=== PATIENT | female | born 1930 | race Caucasian/White ===

== ENCOUNTER 2016-07-10 23:02 | Emergency (ER) | payer MEDICARE, BC ==
--- NOTE | ~2016-07-10 | CT71 ---
[facility] A Service [facility][1] RADIOLOGY TEXT RESULTS PATIENT: TREMAYNE CELESTIN LOCATION: [facility] : 30 UNIT #: [id number] AGE: [address]: Parminder Rowland MD SEX: F ORDER DR: [id number] [facility] [address] [place], [place] [address] [id number] E MR#: [id number] Acc #: [id number] NAME: TREMAYNE CELESTIN. : 1930 SEX: F STUDY DATE/TIME: 07/10/2016 21:17 UNIT: [facility] ROOM: STUDY DESCRIPTION: CT Head Wo Contrast Attending Physician: Parminder Rowland M.D. Ordering Physician: Ed Bandar Da Silva M.D. Primary Care Physician: Primary Care Physician No MEDICAL IMAGING REPORT This report is preliminary unless electronic signature is present EXAM Noncontrast head CT. HISTORY Fell and hit head today, dizziness, neck pain. COMPARISON Head CT 05/01/[address] exam was performed with one or more of the following radiation dose reduction techniques: automatic exposure control, adjustment of mA and/or kV according to patient size, and iterative reconstruction. FINDINGS Axial noncontrast imaging brain demonstrates general generalized atrophy. There is decreased attenuation of the periventricular white matter most compatible chronic microvascular disease. 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 No mass or mass effect or midline shift. No hemorrhage or abnormal extraaxial fluid collections. The bony calvaria, skull base, mastoids and sinuses unremarkable. IMPRESSION No acute intracranial abnormality identified. Generalized atrophy with evidence of chronic diffuse microvascular disease. Dictated by... Joshua Siddiqui M.D. THIS IS AN ELECTRONICALLY VERIFIED REPORT Joshua Siddiqui M.D. at 07/11/2016 11:00 PM [facility] A Service [facility][1] RADIOLOGY TEXT RESULTS PATIENT: TREMAYNE CELESTIN LOCATION: [facility] : 30 UNIT #: [id number] AGE: [address]: Parminder Rowland MD SEX: F ORDER DR: Cristal TD: 07/11/2016 00:39 JOB #: [id number] MEDICAL IMAGING REPORT Page 1 of 1 COPY
--- NOTE | ~2016-07-10 | CT52 ---
[facility] A Service of [facility] RADIOLOGY TEXT RESULTS PATIENT: TREMAYNE CELESTIN LOCATION: [facility] : 30 UNIT #: [id number] AGE: [address]: Parminder Rowland MD SEX: F ORDER DR: [id number] [facility] [address] [place], [place] [address] [id number] E MR#: [id number] Acc #: [id number] NAME: TREMAYNE CELESTIN. : 1930 SEX: F STUDY DATE/TIME: 07/10/2016 21:26 UNIT: [facility] ROOM: STUDY DESCRIPTION: CT Cervical Spine Wo Cont Attending Physician: Parminder Rowland M.D. Ordering Physician: Ed Doctor [id number] [facility] Primary Care Physician: No Primary Care Physician MEDICAL IMAGING REPORT This report is preliminary unless electronic signature is present EXAM CT cervical spine without contrast HISTORY Fell and hit head today, dizziness, neck pain. COMPARISON CT cervical spine 05/01/[address] exam was performed with one or more of the following radiation dose reduction techniques: automatic exposure control, adjustment of mA and/or kV according to patient size, and iterative reconstruction. FINDINGS Thin section axial images form through the cervical spine with multiplanar reconstructed images reviewed at a workstation. Examination demonstrates a lucent defect through the base of the odontoid, which is best seen on the sagittal reconstructed images. This is compatible with a type 2 odontoid fracture. The margins of the fracture appears somewhat sclerotic, and there is some hypertrophic change along the posterior margin of the fracture and one would question whether this could represent a chronic or subacute type 2 odontoid fracture. It does appear to represent a new finding when compared to the patient's CT scan of April 2014. No displacement of the odontoid. There is advanced arthritic changes at the atlantoaxial joint. Generalized osteopenia. Multilevel facet arthropathy, most prominent within the left mid cervical spine facet joints. No high-grade stenosis identified on axial images. Prevertebral soft tissues appear normal. Carotid vascular calcification is noted. IMPRESSION 1. CT demonstrates a type 2 odontoid fracture nondisplaced. The STS. [facility] A Service of [facility] RADIOLOGY TEXT RESULTS PATIENT: TREMAYNE CELESTIN LOCATION: [facility] #: [id number] : 30 UNIT #: [id number] AGE: [address]: Parminder Rowland MD SEX: F ORDER DR: fracture may be an incomplete fracture and given the sclerosis along the fracture margins may represent a subacute or chronic type 2 odontoid fracture though this does appear represent a new finding of patient's CT scan of April 2014. Findings called and discussed with Dr. Rowland in the emergency room. Typically these are considered unstable fractures and further neurosurgical evaluation may be warranted, but again no evidence of malalignment demonstrated on the current study. No additional fractures are seen. 2. Generalized osteopenia with multilevel facet arthropathy most prominent on the left at the mid cervical spine level. No significant spinal or foraminal stenosis identified by CT. Dictated by... Joshua Siddiqui M.D. THIS IS AN ELECTRONICALLY VERIFIED REPORT Joshua Siddiqui M.D. at 07/11/2016 11:00 PM Jackie TD: 07/11/2016 00:33 JOB #: [id number] MEDICAL IMAGING REPORT Page 1 of 1 COPY
[~2016-07-10 23:02] MED LIST: AMLODIPINE BESYL5 MG PO; ASPIRIN EC81 M1 PO; ASPIRIN PO; ASPIRIN81 MG PO; ATORVASTATIN CA10 MG PO; BACTRIM DS TABL1 TAB PO; CALCIUM 500 +1 EAC2 PO; CALCIUM 5001 TAB PO; COUMADIN PO; COUMADIN5 MG PO; CRESTOR5 MG PO; CYMBALTA30 MG PO; FUROSEMIDE40 MG PO; HYDROCODON-ACE1 EA11 PO; HYDROCODON-ACE1 EAC7 PO; K-DUR20 ME1 PO; K-DUR20 ME2 PO; KCL PO; LASIX PO; LIPITOR PO; LOPRESSOR PO; LOSARTAN POTASS50 MG PO; LOTREL 10/20 MG1 CAP PO; LOVENOX SUBQ; NEXIUM PO; PRILOSEC PO; PRILOSEC20 MG PO; TOPROL XL PO; VITAMIN B 6 PO
== END 2016-07-11 00:02 | disposition hospice, home (50) ==
LOC: CED 23:02
DX: S12.112A Nondisplaced Type II dens fracture, initial encounter for closed fracture (principal); S06.0X0A Concussion without loss of consciousness, initial encounter; S00.81XA Abrasion of other part of head, initial encounter; I10 Essential (primary) hypertension; Z79.899 Other long term (current) drug therapy; Z79.01 Long term (current) use of anticoagulants; Z88.0 Allergy status to penicillin; Z88.1 Allergy status to other antibiotic agents; Z88.5 Allergy status to narcotic agent; Z88.8 Allergy status to other drugs, medicaments and biological substances; W18.39XA Other fall on same level, initial encounter; Y92.009 Unspecified place in unspecified non-institutional (private) residence as the place of occurrence of the external cause
CPT/HCPCS: 70450; 72125; 99285

== ENCOUNTER 2016-09-05 15:27 | Emergency (ER) | payer MEDICARE, BC ==
--- NOTE | ~2016-09-05 | CT71 ---
[facility] A Service [facility] RADIOLOGY TEXT RESULTS PATIENT: TREMAYNE CELESTIN LOCATION: SED : 30 UNIT #: [id number] AGE: [address]: Venkata Soria MD SEX: F ORDER DR: [id number] [place] [address] [id number] E MR#: [id number] Acc #: [id number] NAME: TREMAYNE CELESTIN. : 1930 SEX: F STUDY DATE/TIME: 09/05/2016 16:50 UNIT: SED ROOM: STUDY DESCRIPTION: CT Head Wo Contrast Attending Physician: Venkata Soria M.D. Ordering Physician: Venkata Soria M.D. Primary Care Physician: Primary Care Physician No MEDICAL IMAGING REPORT This report is preliminary unless electronic signature is present. EXAM Head CT no contrast, 09/05/[address], 07/10/[address] PROCEDURE Axial unenhanced head CT. This CT exam was performed with one or more of the following radiation dose reduction techniques: automatic exposure control, adjustment of mA and/or kV according to patient size, and iterative reconstruction. CLINICAL HISTORY Worsening confusion since fall in July 2016. FINDINGS There is no intracranial hemorrhage or mass. There is volume loss and white matter change, but no hydrocephalus or extraaxial fluid collection. Volume loss is not substantially greater than might normally be expected in patient's of this age. The extracranial soft tissues are normal. The skull base and calvaria are normal. IMPRESSION Volume loss and chronic small vessel change. No acute intracranial abnormality. No substantial interval change since 07/10/2016. Dictated by... Simeon Long M.D. THIS IS AN ELECTRONICALLY VERIFIED REPORT [facility] A Service [facility] RADIOLOGY TEXT RESULTS PATIENT: TREMAYNE CELESTIN LOCATION: SED : 30 UNIT #: [id number] AGE: [address]: Venkata Soria MD SEX: F ORDER DR: Simeon Long M.D. at 09/08/2016 2:21 PM ALEX/kaity TD: 09/05/2016 22:32 JOB #: [id number] MEDICAL IMAGING REPORT Page 1 of 1
--- NOTE | ~2016-09-05 | CR72 ---
[facility] A Service of [facility] RADIOLOGY TEXT RESULTS PATIENT: TREMAYNE CELESTIN LOCATION: SED : 30 UNIT #: [id number] AGE: [address]: eVnkata Soria MD SEX: F ORDER DR: [id number] [place] [id number] E MR#: [id number] Acc #: [id number] NAME: TREMAYNE CELESTIN. : 1930 SEX: F STUDY DATE/TIME: 09/05/2016 17:03 UNIT: SED ROOM: STUDY DESCRIPTION: CR Chest Single View Portable Attending Physician: Venkata Soria M.D. Ordering Physician: Venkata Soria M.D. Primary Care Physician: Primary Care Physician No MEDICAL IMAGING REPORT This report is preliminary unless electronic signature is present. EXAM Portable AP view of the chest. COMPARISON 02/08/2009; 07/17/2005. INDICATION 86-year-old female with dyspnea today. History of recurrent falls since July 2016. FINDINGS Osteophyte formation at both acromioclavicular joints. Mild enthesopathy at the right greater tuberosity of the humerus. Degenerative changes in both sides of the lower neck. Fracture fixation hardware seen at the proximal left humerus. The left humeral head has a chronic dysmorphic appearance, new from 2008. Surgical clips are seen in the left axillary region. No evidence of pneumothorax. There is stable cardiomegaly. Prominent breast shadows are favored over both lung bases although there are slightly increased band-like opacities in the right lung base and there is increased hazy attenuation over the left lung base which may be due to prominent cardiac and breast shadow. There does appear to be increased encephalization of pulmonary vasculature and findings could reflect mild interstitial edema. IMPRESSION Apparent cardiomegaly with slight increased interstitial opacities throughout the lungs with diminished lung volumes from comparison study. Findings could reflect mild interstitial edema or bronchovascular crowding/atelectasis. Left basilar pneumonia, or possibly pleural effusion cannot be excluded but the finding may simply reflect prominent breast and cardiac shadows. [facility] A Service of [facility] RADIOLOGY TEXT RESULTS PATIENT: TREMAYNE CELESTIN LOCATION: [facility] : 30 UNIT #: [id number] AGE: [address]: Venkata Soria MD SEX: F ORDER DR: Dictated by... Pool Valle M.D. THIS IS AN ELECTRONICALLY VERIFIED REPORT Pool Valle M.D. at 09/10/2016 8:10 PM CLOVIS/tyler TD: 09/05/2016 23:18 JOB #: [id number] MEDICAL IMAGING REPORT Page 1 of 1
[2016-09-05 17:00] LABS: BASOPHIL% 0.5 % (0-2.5); EOSINOPHIL# 0.2 X10e3 (0-0.7); EOSINOPHIL% 2.2 % (0.0-7.0); HEMATOCRIT 39.1 % (35.0-45.0); LYMPHOCYTE% 14.1 % (17.0-45.0); MEAN CORPUSCULAR HGB CONC 33.3 g/dL (30-36); MEAN PLATELET VOLUME 8.2 FL (6.5-11.5); MONOCYTE# 0.5 X10e3 (0-1.0); MONOCYTE% 6.6 % (3.0-12.0); NEUTROPHIL# 5.4 X10e3 (1.5-7.1); NEUTROPHIL% 76.6 % (40-75); PLATELET COUNT 255 X10e3 (140-420); RED BLOOD COUNT 4.49 X10e (3.90-5.30); RED CELL DISTRIBUTION WIDTH 15.8 % (11.0-15.5); WHITE BLOOD COUNT 7.1 X10e3 (4.0-10.5)
[2016-09-05 17:04] LABS: DIFF IND NO
[2016-09-05 17:09] LABS: URINE SOURCE CLEAN CATCH
[2016-09-05 17:12] LABS: URINE APPEARANCE CLEAR; URINE BILIRUBIN NEG (NEG); URINE BLOOD NEG (NEG); URINE COLOR YELLOW; URINE GLUCOSE NEG (NORM); URINE KETONE NEG (NEG); URINE LEUKOCYTE ESTERASE 1+ (NEG); URINE NITRATE NEG (NEG); URINE PROTEIN NEG (NEG); URINE UROBILINOGEN 0.2 MG/DL (NORM)
[2016-09-05 17:17] LABS: MICRO INDICATED? YES
[2016-09-05 17:32] LABS: CULTURE INDICATED? YES; URINE BACTERIA NEG (NEG); URINE HYALINE CAST 0-2 /[HPF]; URINE RBC 0-2 /[HPF] (0-2); URINE SQUAMOUS EPITHELIAL CELL OCCAS /[HPF]
[2016-09-05 17:37] LABS: ALBUMIN SERUM 3.9 g/dL (3.5-5.0); BILIRUBIN, DIRECT 0.1 mg/dL (0.0-0.2); BILIRUBIN,INDIRECT 0.5 mg/dL (0.0-0.9); BILIRUBIN,TOTAL 0.6 mg/dL (0.2-2.0); BUN/CREATININE RATIO 18.57; CALCIUM SERUM 9.2 mg/dL (8.4-10.2); CREATININE SERUM 0.7 mg/dL (0.6-1.4); GLOM FILT RATE Estimated 78.5 mL/min (>60); POTASSIUM 3.1 mmol/L (3.5-5.1); PROTEIN TOTAL SERUM 7.2 g/dL (6.0-8.3)
== END 2016-09-05 18:20 | disposition home or self-care (01) ==
LOC: SED 15:27
PROVIDERS: Emergency Medicine
DX: R41.0 Disorientation, unspecified (principal); E87.6 Hypokalemia; N39.0 Urinary tract infection, site not specified; I10 Essential (primary) hypertension; Z90.49 Acquired absence of other specified parts of digestive tract; Z88.0 Allergy status to penicillin; Z88.5 Allergy status to narcotic agent; Z88.1 Allergy status to other antibiotic agents; Z88.8 Allergy status to other drugs, medicaments and biological substances; Z79.899 Other long term (current) drug therapy
CPT/HCPCS: 70450; 71010; 80048; 80076; 81003; 82947; 85025; 87086; 96360; 99284